=== PATIENT | female | born 1985 | race Caucasian/White ===

== ENCOUNTER 2017-06-21 11:17 | Emergency (ER) | payer OTHER ==
[2017-06-21 11:30] VITALS: BMI 31.9
--- NOTE | 2017-06-21 12:03 | PDOC ---
History of Present Illness - General History Source: Patient Exam Limitations: No Limitations <Madelyn Camacho - Last Filed: 06/21/17 16:06> - General History Source: Patient Exam Limitations: No Limitations - History of Present Illness Initial Comments: 06/21/17 12:04 The patient is a 32 year old female with no significant past medical history who presents to the ED complaining of approximately 1 day of suprapubic pain. Her pain is described as crampy, not radiating or migrating, with associated diaphoresis last night. The patient states her menstrual period was due approximately 1 week ago but she has yet to menstruate. The patient denies fever or chills. She denies any urinary complaints. She denies abnormal vaginal discharge. She denies nausea, vomiting, or diarrhea. Family history is noncontributory. Denies toxic habits. <Adalgisa Gallego - Last Filed: 06/21/17 16:17> - General Stated Complaint: ABD PAIN Past History - Reproductive History (#): 3 Para: 2 Therapeutic (s) & number: Yes - Immunization History Immunization Up to Date: No - Psycho/Social/Smoking Cessation Hx Anxiety: No Suicidal Ideation: No Smoking History: Never smoked Information on smoking cessation initiated: No Hx Alcohol Use: No Substance Use Type: None <Madelyn Camacho - Last Filed: 06/21/17 16:06> <Adalgisa Gallego - Last Filed: 06/21/17 16:17> - Past Medical History Allergies/Adverse Reactions: Allergies Allergy/AdvReac Type Severity Reaction Status Date / Time No Known Allergies Allergy Verified 12/17/14 19:41 Home Medications: Ambulatory Orders NK [No Known Home Medication] 12/17/14 Review of Systems - Review of Systems Able to Perform ROS?: Yes Comments:: 06/21/17 12:08 GENERAL/CONSTITUTIONAL: +Diaphoresis (resolved). No fever or chills. No weakness. HEAD, EYES, EARS, NOSE AND THROAT: No change in vision. No ear pain or discharge. No sore throat. CARDIOVASCULAR: No chest pain or shortness of breath. RESPIRATORY: No cough, wheezing, or hemoptysis. GASTROINTESTINAL: +Suprapubic cramping. No nausea, vomiting, diarrhea or constipation. GENITOURINARY: No dysuria, frequency, or change in urination. No abnormal vaginal bleeding MUSCULOSKELETAL: No joint or muscle swelling or pain. No neck or back pain. SKIN: No rash NEUROLOGIC: No headache, vertigo, loss of consciousness, or change in strength/ sensation. ENDOCRINE: No increased thirst. No abnormal weight change. HEMATOLOGIC/LYMPHATIC: No anemia, easy bleeding, or history of blood clots. ALLERGIC/IMMUNOLOGIC: No hives or skin allergy. <Adalgisa Gallego - Last Filed: 06/21/17 16:17> *Physical Exam - Vital Signs Last Vital Signs Temp Pulse Resp BP Pulse Ox 98 F 100 H 18 119/70 100 06/21/17 11:27 06/21/17 11:27 06/21/17 11:27 06/21/17 11:27 06/21/17 11:27 <Madelyn Camacho - Last Filed: 06/21/17 16:06> - Vital Signs Last Vital Signs Temp Pulse Resp BP Pulse Ox 98 F 100 H 18 119/70 100 06/21/17 11:27 06/21/17 11:27 06/21/17 11:27 06/21/17 11:27 06/21/17 11:27 - Physical Exam Comments: 06/21/17 12:12 GENERAL: Awake, alert, and fully oriented, in no acute distress HEAD: No signs of trauma EYES: PERRLA, EOMI, sclera anicteric, conjunctiva clear ENT: Auricles normal inspection, hearing grossly normal, nares patent, oropharynx clear without exudates. Moist mucosa NECK: Normal ROM, supple, no lymphadenopathy, JVD, or masses LUNGS: Breath sounds equal, clear to auscultation bilaterally. No wheezes, and no crackles HEART: Regular rate and rhythm, normal S1 and S2, no murmurs, rubs or gallops ABDOMEN: Soft, nontender, normoactive bowel sounds. No guarding, no rebound. No masses EXTREMITIES: Normal range of motion, no edema. No clubbing or cyanosis. No cords, erythema, or tenderness NEUROLOGICAL: Cranial nerves II through XII grossly intact. Normal speech, normal gait SKIN: Warm, Dry, normal turgor, no rashes or lesions noted. PELVIC: Normal external exam. Scant vaginal discharge, no vaginal bleeding. Cervical os is closed. +Mild R adnexal tenderness, no palpable masses. <Adalgisa Gallego - Last Filed: 06/21/17 16:17> ED Treatment Course - LABORATORY CBC & Chemistry Diagram: 06/21/17 13:11 06/21/17 13:11 <Madelyn Camacho - Last Filed: 06/21/17 16:06> - LABORATORY CBC & Chemistry Diagram: 06/21/17 13:11 06/21/17 13:11 - RADIOLOGY Radiograph Interpretation: 06/21/17 16:15 Transvaginal US with US <Adalgisa Gallego - Last Filed: 06/21/17 16:17> Medical Decision Making - Medical Decision Making 06/21/17 11:58 32 yo F here with crampy lower abd pain. started yesterday. no urinary complaints. no vaginal bleeding or dc. states her period is one week late. no f /c did have mild flank pain. no other mod factors. did not take anything for pain. awake alert lungs clear hear trr no mrg. abd soft nt nd. ext wwp no edema. plan : differential . uti plan pelvic exam ua ucg. reassess. <Madelyn Camacho - Last Filed: 06/21/17 16:06> - Medical Decision Making 06/21/17 12:53 Laboratory Tests 06/21/17 11:57 Urine Color Ltyellow Urine Appearance Clear Urine pH 7.0 Ur Specific [place] Pending Urine Protein Negative Urine Glucose (UA) Negative Urine Ketones Negative Urine Blood Negative Urine Nitrite Negative Urine Bilirubin Negative Urine Urobilinogen Negative Ur Leukocyte Esterase Negative Urine HCG, Qual Positive Labs reviewed <Adalgsia Gallego - Last Filed: 06/21/17 16:17> *DC/Admit/Observation/Transfer - Discharge Dispostion Admit: No <Madelyn Camacho - Last Filed: 06/21/17 16:06> - Attestations Scribe Attestion: 06/21/17 12:13 Documentation prepared by Adalgisa Gallego, acting as medical research tech for Madelyn Camacho MD. <Adalgisa Gallego - Last Filed: 06/21/17 16:17> Diagnosis at time of Disposition: - Referrals Referrals: Mari Bradley MD [Primary Care Provider] - Juan Dai MD [Staff Physician] - - Patient Instructions Printed Discharge Instructions: Medications and Additional Instructions: you should return to ED in 72 hour for repeat blood test of . your ultrasound does not show yet as it is too early. however we stil worry about ectopic or tubal . for severe worsening pain or bleeding return sooner. you should follow up with your primary java lead. call to schedule. if you do not have one you can follow up with dr. Dai. see referral information.
[2017-06-21 12:34] LABS: URINE APPEARANCE CLEAR; URINE BILIRUBIN NEGATIVE (NEGATIVE); URINE BLOOD NEGATIVE (NEGATIVE); URINE COLOR LTYELLOW; URINE GLUCOSE (UA) NEGATIVE (NEGATIVE); URINE KETONE NEGATIVE (NEGATIVE); URINE LEUK ESTERASE NEGATIVE (NEGATIVE); URINE NITRITE NEGATIVE (NEGATIVE); URINE PROTEIN NEGATIVE (NEGATIVE); URINE UROBILINOGEN NEGATIVE mg/dL (0.2-1.0)
[2017-06-21 13:52] LABS: BASOPHIL 0.9 % (0-2.0); EOSINOPHIL 1.6 % (0-4.5); MCH 29.3 pg (25.7-33.7); MCHC 33.2 g/dl (32.0-36.0); MEAN CELL VOLUME 88.3 fl (80-96); MEAN PLT VOLUME 8.3 fl (7.5-11.1); NEUTROPHILS 70.4 % (42.8-82.8); PLATELET COUNT 370 K/MM3 (134-434); RDW 12.9 % (11.6-15.6); WHITE BLOOD COUNT 10.4 K/mm3 (4.0-10.0)
[2017-06-21 14:25] LABS: ALBUMIN 3.7 g/dl (3.4-5.0); ANION GAP 6 (8-16); BILIRUBIN,TOTAL 0.3 mg/dL (0.2-1.0); CALCIUM 9.1 mg/dL (8.5-10.1); CO2 29 mmol/L (21-32); CREATININE 0.5 mg/dL (0.55-1.02); GLUCOSE,RANDOM 65 mg/dL (74-106); SGPT/ALT 19 U/L (12-78); TOT PROT 7.4 g/dl (6.4-8.2)
[2017-06-21 14:27] LABS: ALK PHOS 63 U/L (45-117)
[2017-06-21 14:28] LABS: SGOT/AST 19 U/L (15-37)
[2017-06-21 16:38] VITALS: BP 110/68; PULSE 86; TEMP 97.8
== END 2017-06-21 16:39 | disposition home or self-care (01) ==
LOC: JER 11:17
DX: O26.891 Other specified pregnancy related conditions, first trimester (principal); O34.11 Maternal care for benign tumor of corpus uteri, first trimester; D25.9 Leiomyoma of uterus, unspecified; Z3A.00 Weeks of gestation of pregnancy not specified
CPT/HCPCS: 36415; 76817-TC; 76856-TC; 80053; 81003; 84702; 84703; 85025; 86850; 86900; 86901; 99283-25

== ENCOUNTER 2017-06-24 10:59 | Emergency (ER) | payer OTHER ==
[2017-06-24 11:03] VITALS: BP 120/82; PULSE 90; TEMP 98.2; BMI 36.6
--- NOTE | 2017-06-24 11:43 | PDOC ---
History of Present Illness - General Chief Complaint: [facility] [place] Stated Complaint: LAB VARIANCE Time Seen by Provider: 06/24/17 11:26 History Source: Patient Exam Limitations: No Limitations - History of Present Illness Initial Comments: 06/24/17 11:37 Return to emergency department for repeat beta hCG per instructions. Was seen here 3 days ago with abdominal pain and cramping and found to be . Her beta hCG at that time was 395, but was too early to be detected by ultrasound. Patient since that time has not had any cramping, bleeding, or any problems. Was a planned Timing/Duration: unsure Past History - Travel Traveled outside of the country in the last 30 days: No Close contact w/someone who was outside of country & ill: No - Past Medical History Allergies/Adverse Reactions: Allergies Allergy/AdvReac Type Severity Reaction Status Date / Time No Known Allergies Allergy Verified 06/24/17 11:03 Home Medications: Ambulatory Orders NK [No Known Home Medication] 12/17/14 Other medical history: NONE - Reproductive History (#): 3 Para: 2 Therapeutic (s) & number: Yes - Immunization History Immunization Up to Date: No - Psycho/Social/Smoking Cessation Hx Anxiety: No Suicidal Ideation: No Smoking History: Never smoked Hx Alcohol Use: No Drug/Substance Use Hx: No Substance Use Type: None Review of Systems - Review of Systems Able to Perform ROS?: Yes Is the patient limited Hebrew proficient: Yes Constitutional: Yes: See HPI. No: Symptoms Reported, Loss of Appetite, Malaise HEENTM: Yes: See HPI. No: Symptoms Reported Respiratory: No: Symptoms reported Musculoskeletal: No: Symptoms Reported All Other Systems: Reviewed and Negative *Physical Exam - Vital Signs Last Vital Signs Temp Pulse Resp BP Pulse Ox 98.2 F 90 20 120/82 100 06/24/17 11:00 06/24/17 11:00 06/24/17 11:00 06/24/17 11:00 06/24/17 11:00 - Physical Exam General Appearance: Yes: Nourished, Appropriately Dressed. No: Apparent Distress HEENT: positive: KAYLENE, TMs Normal, Pharynx Normal Neck: positive: Supple. negative: Tender Respiratory/Chest: positive: Lungs Clear. negative: Chest Tender Extremity: positive: Normal Capillary Refill, Normal Inspection Integumentary: positive: Pale Neurologic: positive: cafeteria supervisor II-XII NML intact, Fully Oriented, Normal Response, Motor Strength 02/17 Medical Decision Making - Medical Decision Making 06/24/17 12:15 Beta hCG today 711 which is an appropriate increase for normal gestational . 06/24/17 12:16 *DC/Admit/Observation/Transfer Diagnosis at time of Disposition: Qualifiers: Weeks of gestation: less than 8 weeks Qualified Code(s): Z3A.01 - Less than 8 weeks gestation of - Discharge Dispostion Disposition: HOME Condition at time of disposition: Stable Admit: No - Patient Instructions Printed Discharge Instructions: DI for Abdominal Pain -- Early Additional Instructions: Continue healthy diet, lots of fluids Consider vitamins Follow-up with CHIEF INVESTMENT OFFICER for care Your beta hCG today is 711
== END 2017-06-24 12:48 | disposition home or self-care (01) ==
LOC: JERFT 10:59
DX: O26.891 Other specified pregnancy related conditions, first trimester (principal); Z32.01 Encounter for pregnancy test, result positive; Z3A.01 Less than 8 weeks gestation of pregnancy
CPT/HCPCS: 36415; 84702; 99281-25

== ENCOUNTER 2018-06-19 10:41 | Emergency (ER) | payer OTHER ==
[2018-06-19 10:47] VITALS: BP 126/71; PULSE 94; TEMP 98.9; BMI 39.5
--- NOTE | 2018-06-19 11:19 | PDOC ---
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 HEAD, EYES, EARS, NOSE AND THROAT: No: change in vision, ear pain, discharge, sore throat, throat swelling. CARDIOVASCULAR: No: chest pain, lightheadedness, palpitations, syncope RESPIRATORY: No: cough, shortness of breath, wheezing, hemoptysis, stridor. GASTROINTESTINAL: Yes: abdominal pain No: nausea, vomiting, diarrhea GENITOURINARY: No: dysuria, hematuria, frequency, urgency, flank pain. MUSCULOSKELETAL: No: back pain, neck pain, joint pain, muscle swelling or pain SKIN: No: lesions, pallor, rash or easy bruising. NEUROLOGIC: No: headache, vertigo, paresthesias, weakness ENDOCRINE: No: unexplained weight gain or loss HEMATOLOGIC/LYMPHATIC: No: anemia, easy bleeding, swelling nodes. PE: GENERAL: The patient is in no acute distress. HEAD: Normal with no signs of trauma. EYES: PERRLA, EOMI, sclera anicteric, conjunctiva clear. ENT: Ears normal, nares patent, oropharynx clear without exudates. Moist mucous membranes. NECK: Normal range of motion, supple without lymphadenopathy, JVD, or masses. LUNGS: Breath sounds equal, clear to auscultation bilaterally. No wheezes, and no crackles. HEART:Regular rate and rhythm, normal S1 and S2 without murmur, rub or gallop. ABDOMEN: Soft, LLQ tenderness, no guarding, no rebound EXTREMITIES: Normal range of motion, no edema. No clubbing or cyanosis. No erythema, or tenderness. NEUROLOGICAL: Cranial nerves II through XII grossly intact. Normal speech. No focal neurological deficits. MUSCULOSKELETAL: Back non-tender to palpation, no CVA tenderness SKIN: Warm, Dry, normal turgor, no rashes or lesions noted. 06/19/18 12:17 06/19/18 13:50 Past History - Past Medical History Allergies/Adverse Reactions: Allergies Allergy/AdvReac Type Severity Reaction Status Date / Time No Known Allergies Allergy Verified 06/19/18 10:47 Home Medications: Ambulatory Orders Pnv No.121/Iron/Folic Acid [ Multivitamin Tablet] 1 each PO DAILY #60 tablet 06/19/18 COPD: No DVT: No - Reproductive History (#): 3 Para: 2 Therapeutic (s) & number: Yes - Immunization History Immunization Up to Date: No - Suicide/Smoking/Psychosocial Hx Smoking History: Never smoked Have you smoked in the past 12 months: No Information on smoking cessation initiated: No Hx Alcohol Use: No Drug/Substance Use Hx: No Substance Use Type: None *Physical Exam - Vital Signs Last Vital Signs Temp Pulse Resp BP Pulse Ox 98.9 F 94 H 16 126/71 100 06/19/18 10:45 06/19/18 10:45 06/19/18 10:45 06/19/18 10:45 06/19/18 10:45 ED Treatment Course - LABORATORY CBC & Chemistry Diagram: 06/19/18 11:40 06/19/18 11:40 Medical Decision Making - Medical Decision Making 06/19/18 12:19 Laboratory Tests 06/21/17 06/19/18 06/19/18 13:00 11:40 11:40 WBC 11.3 H Hgb 13.0 Hct 38.3 Plt Count 350 Sodium 137 Potassium 4.2 Chloride 102 Carbon Dioxide 28 BUN 9 Creatinine 0.6 Random Glucose 96 Urine Ketones Urine Blood Ur Leukocyte Esterase Blood Type A POSITIVE 06/19/18 11:48 WBC Hgb Hct Plt Count Sodium Potassium Chloride Carbon Dioxide BUN Creatinine Random Glucose Urine Ketones Negative Urine Blood Negative Ur Leukocyte Esterase Negative Blood Type US pending 06/19/18 13:10 Laboratory Tests 06/19/18 06/19/18 11:48 12:21 Beta HCG, Quant 28922.5 Urine Blood Negative Urine Nitrite Negative Ur Leukocyte Esterase Negative US demonstrates IUP, (+) FHR Will discharge to home Pt given copies of all results Return precautions given clinical impression: abdominal pain, early , initial presentation *DC/Admit/Observation/Transfer Diagnosis at time of Disposition: Abdominal pain affecting - Discharge Dispostion Disposition: HOME Condition at time of disposition: Stable Decision to Admit order: No - Prescriptions Prescriptions: Pnv No.121/Iron/Folic Acid [ Multivitamin Tablet] 1 each PO DAILY #60 tablet - Referrals Referrals: Tamica Crespo MD [Certified Nurse Jewelry Drill Operator] - - Patient Instructions Printed Discharge Instructions: DI for Abdominal Pain-Adult, DI for - - Discomforts and Remedies Additional Instructions: Please return to the ER for any other concerns or complaints Please take tylenol for pain Please follow up with your steward/stewardess banquet within 1 week If you have heavy vaginal bleeding (saturating 2 pads/hour x 2 hours), please return to the ER - Post Discharge Activity Forms/Work/School Notes: Back to Work
[2018-06-19 11:54] LABS: BASO % 0.8 % (0-2.0); EOS % 1.6 % (0-4.5); HEMATOCRIT 38.3 % (32.4-45.2); LYMPH % 21.4 % (8-40); MCH 29.8 pg (25.7-33.7); MCHC 33.8 g/dl (32.0-36.0); MEAN CELL VOLUME 88.3 fl (80-96); MEAN PLT VOLUME 7.9 fl (7.5-11.1); MONO % 7.5 % (3.8-10.2); NEUT % 68.7 % (42.8-82.8); PLATELET COUNT 350 K/MM3 (134-434); RBC 4.34 M/mm3 (3.60-5.2); RDW 13.4 % (11.6-15.6); WHITE BLOOD COUNT 11.3 K/mm3 (4.0-10.0)
[2018-06-19 11:56] LABS: URINE APPEARANCE SLCLOUDY; URINE BILIRUBIN NEGATIVE (<2.0 mg/dL); URINE COLOR YELLOW; URINE GLUCOSE (UA) NEGATIVE (NEGATIVE); URINE KETONE NEGATIVE (NEGATIVE); URINE LEUK ESTERASE NEGATIVE (NEGATIVE); URINE NITRITE NEGATIVE (NEGATIVE); URINE PROTEIN NEGATIVE (NEGATIVE); URINE UROBILINOGEN NEGATIVE mg/dL (0.2-1.0)
[2018-06-19 12:10] LABS: ALBUMIN 3.2 g/dl (3.4-5.0); ALK PHOS 61 U/L (45-117); ANION GAP 7 MMOL/L (8-16); BILIRUBIN,TOTAL 0.3 mg/dL (0.2-1.0); BLOOD UREA NITROGEN 9 mg/dL (7-18); CALCIUM 8.8 mg/dL (8.5-10.1); CHLORIDE 102 mmol/L (98-107); CO2 28 mmol/L (21-32); CREATININE 0.6 mg/dL (0.55-1.02); GLUCOSE,RANDOM 96 mg/dL (74-106); SGPT/ALT 23 U/L (12-78); SODIUM 137 mmol/L (136-145); TOT PROT 7.3 g/dl (6.4-8.2)
[2018-06-19 12:14] LABS: POTASSIUM 4.2 mmol/L (3.5-5.1); SGOT/AST 16 U/L (15-37)
[2018-06-19] MEDS ORDERED: ACETAMINOPHEN 325 MG TABLET (FP) PO ONE (12:19)
[2018-06-19] MEDS ORDERED: ACETAMINOPHEN 325 MG TABLET (FP) ONE (12:25)
== END 2018-06-19 15:00 | disposition home or self-care (01) ==
LOC: JER 10:41
DX: O26.892 Other specified pregnancy related conditions, second trimester (principal); O34.12 Maternal care for benign tumor of corpus uteri, second trimester; Z3A.17 17 weeks gestation of pregnancy
CPT/HCPCS: 36415; 76817-TC; 80053; 81003; 84702; 85025; 86850; 86900; 86901; 87086; 99283-25

== ENCOUNTER 2018-07-09 11:38 | Emergency (ER) | payer OTHER ==
[2018-07-09 11:46] VITALS: BP 121/69; PULSE 103; TEMP 98.1; BMI 37.8
--- NOTE | 2018-07-09 12:35 | PDOC ---
History of Present Illness - General Chief Complaint: Cold Symptoms Stated Complaint: SORE THROAT, SOB Time Seen by Provider: 07/09/18 12:15 History Source: Patient Exam Limitations: No Limitations - History of Present Illness Initial Comments: 07/09/18 12:25 c/o right ear pain for 4 days with drainage , had fever chills last night. pt also with sore throat. pt is 12 weeks no abd pain or vaginal complaints Past History - Past Medical History Allergies/Adverse Reactions: Allergies Allergy/AdvReac Type Severity Reaction Status Date / Time No Known Allergies Allergy Verified 07/09/18 12:11 Home Medications: Ambulatory Orders Amoxicillin - [Amoxicillin 875mg Tablet -] 875 mg PO BID #14 tab 07/09/18 COPD: No DVT: No - Reproductive History (#): 3 Para: 2 Therapeutic (s) & number: Yes - Immunization History Immunization Up to Date: No - Suicide/Smoking/Psychosocial Hx Smoking History: Never smoked Have you smoked in the past 12 months: No Hx Alcohol Use: No Drug/Substance Use Hx: No Substance Use Type: None *Physical Exam - Vital Signs Last Vital Signs Temp Pulse Resp BP Pulse Ox 98.1 F 103 H 18 121/69 99 07/09/18 11:45 07/09/18 11:45 07/09/18 11:45 07/09/18 11:45 07/09/18 11:45 - Physical Exam General Appearance: Yes: Nourished, Appropriately Dressed HEENT: positive: EOMI, KAYLENE, TM Erythema (right ear with narrowing of canal yellow drainage TM bulging ) Neck: positive: Supple. negative: Lymphadenopathy (R), Lymphadenopathy (L) Respiratory/Chest: positive: Lungs Clear, Normal Breath Sounds. negative: Chest Tender, Crackles, Rales, Rhonchi, Stridor, Wheezing, Hyperresonant Gastrointestinal/Abdominal: positive: Normal Bowel Sounds, Soft Musculoskeletal: positive: Normal Inspection Extremity: positive: Normal Capillary Refill, Normal Inspection, Normal Range of Motion Integumentary: positive: Normal Color, Dry, Warm Neurologic: positive: ratoprinter II-XII NML intact, Fully Oriented, Alert, Normal Mood/ Affect, Normal Response, Motor Strength 5/5 Medical Decision Making - Medical Decision Making 07/09/18 12:25 cc: right ear pain with drainage exam consistent with acute otitis externa will treat with amoxicillin po and polymixin drops 07/09/18 13:28 pt concerned about FLU , will swab for flu *DC/Admit/Observation/Transfer Diagnosis at time of Disposition: Otitis externa - Discharge Dispostion Disposition: HOME Condition at time of disposition: Good - Prescriptions Prescriptions: Amoxicillin - [Amoxicillin 875mg Tablet -] 875 mg PO BID #14 tab - Referrals Referrals: Mikel Engel [Primary Care Provider] - Lawson Swanson MD [Staff Physician] - - Patient Instructions Printed Discharge Instructions: Ear Infections (Alternative Therapy) Additional Instructions: 1. Vinegar: Both apple cider vinegar and white vinegar are known to be good fighters for all kinds of fungus (3). Vinegar works on the fungus and removes it during the drainage process. Take one teaspoon each of vinegar and water, and mix well. Lie down on your side such that the infected ear is on the top. Now soak a cotton plug into the mixture and put it over the infected ear. Let it be there for about 15 minutes and then remove the liquid by turning your head in the opposite direction. Air-dry your ear completely. If you do it twice a day, you will get rid of the infection within 2 or 3 days. You can also put the mixture into the ear using a dropper. Squirm and then put some cotton in the ear. Let it remain for 15 minutes and then take away the cotton. Clean the ear using ear buds. take the Amoxicillin as directed for 7 days take tylenol as needed follow with the ENT doctor this week - Post Discharge Activity
== END 2018-07-09 13:42 | disposition home or self-care (01) ==
LOC: JERFT 11:38
DX: O99.89 Other specified diseases and conditions complicating pregnancy, childbirth and the puerperium (principal); H60.501 Unspecified acute noninfective otitis externa, right ear; Z3A.12 12 weeks gestation of pregnancy
CPT/HCPCS: 87804; 99281-25

== ENCOUNTER 2019-01-31 11:10 | Inpatient (IN) | payer OTHER ==
[2019-01-31 12:15] VITALS: BMI 43.7
[2019-01-31 13:50] LABS: BASO % 0.7 % (0-2.0); EOS % 1.1 % (0-4.5); HEMOGLOBIN 12.3 GM/dL (10.7-15.3); LYMPH % 24.4 % (8-40); MCH 27.8 pg (25.7-33.7); MCHC 33.3 g/dl (32.0-36.0); MEAN CELL VOLUME 83.4 fl (80-96); MEAN PLT VOLUME 8.6 fl (7.5-11.1); MONO % 6.9 % (3.8-10.2); NEUT % 66.9 % (42.8-82.8); PLATELET COUNT 327 K/MM3 (134-434); RBC 4.43 M/mm3 (3.60-5.2); RDW 16.5 % (11.6-15.6)
[2019-01-31 14:09] LABS: INR 0.92 (0.83-1.09); PROTHROMBIN TIME (PATIENT) 10.9 SEC (9.7-13.0)
[2019-01-31 14:11] LABS: ACTIVATED PTT 27.2 SECONDS (25.2-36.5)
[2019-01-31 14:19] LABS: ANION GAP 9 MMOL/L (8-16); BLOOD UREA NITROGEN 8 mg/dL (7-18); CALCIUM 9.1 mg/dL (8.5-10.1); CHLORIDE 104 mmol/L (98-107); CO2 25 mmol/L (21-32); CREATININE 0.7 mg/dL (0.55-1.3); GLUCOSE,RANDOM 117 mg/dL (74-106); POTASSIUM 4.1 mmol/L (3.5-5.1); SODIUM 137 mmol/L (136-145)
[2019-01-31] MEDS ORDERED: DINOPROSTONE 10 MG VAGINAL SUPPOSITORY VG ONE (17:34)
[2019-01-31] MEDS ORDERED: PROMETHAZINE HCL 25 MG/1 ML VIAL IVPUSH ONE (17:36)
[2019-01-31] MEDS ORDERED: BUTORPHANOL TARTRATE 1 MG/ML VIAL IVPUSH ONE (17:36)
[2019-01-31] MEDS ORDERED: DEXTROSE 5%-LACTATED RINGERS 1,000 ML IV SCH (17:45)
--- NOTE | 2019-01-31 18:39 | HP ---
Past Medical History - Primary Care Physician PCP:: Juan Dai - Admission Chief Complaint: 40 WEEKS, ADMITTED FOR CERVIDIL INDUCTION History of Present Illness: 33 YO F G5 P 2 0 2 40 WEEK admitted for cervidil induction, cx 2 cm 50 vx -3 fhr cat 1, no contraction, , cervidil risks and benfit discussed . all questions answered History Source: Patient Limitations to Obtaining History: No Limitations - Past Medical History ...: 5 ...Para: 2 ...Term: 2 ...: 0 ...Spon : 1 ...Induced : 1 ...Multiple Gestation: 0 ...LMP: 04/26/18 ... Weeks Gestation by Dates: 40 ...EDC by Dates: 01/31/19 ...EDC by Sono: 01/31/19 - Past Surgical History Hx Myomectomy: No Hx Transabdominal Cerclage: No - Smoking History Smoking history: Unknown if ever smoked Have you smoked in the past 12 months: No - Alcohol/Substance Use Hx Alcohol Use: No - Social History Usual Living Arrangement: Yes: With Spouse History of Recent Travel: No Home Medications - Allergies Allergies/Adverse Reactions: Allergies Allergy/AdvReac Type Severity Reaction Status Date / Time No Known Allergies Allergy Verified 01/31/19 12:24 - Home Medications Home Medications: Ambulatory Orders Vitamins (Sjr) - 1 tab PO DAILY 01/25/19 Review of Systems - Review of Systems Constitutional: reports: No Symptoms Eyes: reports: No Symptoms HENT: reports: No Symptoms Neck: reports: No Symptoms Cardiovascular: reports: No Symptoms Respiratory: reports: No Symptoms Gastrointestinal: reports: No Symptoms Genitourinary: reports: No Symptoms Breasts: reports: No Symptoms Reported Musculoskeletal: reports: No Symptoms Integumentary: reports: No Symptoms Neurological: reports: No Symptoms Endocrine: reports: No Symptoms Hematology/Lymphatic: reports: No Symptoms Psychiatric: reports: No Symptoms Physical Exam - Maternity Vital Signs: Vital Signs Temperature 98.5 F 01/31/19 18:00 Pulse Rate 96 H 01/31/19 18:00 Respiratory Rate 20 01/31/19 18:00 Blood Pressure 136/68 01/31/19 18:00 O2 Sat by Pulse Oximetry (%) Eyes: Yes: WNL HENT: Yes: WNL Neck: Yes: WNL Cardiovascular: Yes: WNL Breast(s): Yes: WNL - Abdominal Exam/OB Fundal Height: 40 Number of Fetuses: Single Presentation: Vertex Contractions: No Intensity: Unaware Monitor Mode: External Heart Rate Location: [facility] Category: I Accelerations: Uniform Decelerations: None - Vaginal Exam/OB Vaginal Bleediing: No Speculum Exam: No Dilatation (cm): 2 cm Effacement (%): 50 Amniotic Membrane Status: Intact Presentation: Vertex/Position Station: -3 - Physical Exam Musculoskeletal: Yes: WNL Extremities: Yes: WNL Edema: LLE: Trace, RLE: Trace Deep Tendon Reflex Grade: Normal +2 Psychiatric: Yes: Alert - Labs Lab Results: CBC, BMP 01/31/19 13:20 01/31/19 13:20 Problem List - Problems (1) Post term over 40 weeks Code(s): O48.0 - POST-TERM (2) Elective induction of labor planned Code(s): [id number] - (3) Obesity Code(s): E66.9 - OBESITY, UNSPECIFIED Qualifiers: Obesity type: due to excess calories Assessment/Plan admit. cervidil induction, fhm
--- NOTE | 2019-01-31 21:35 | PN ---
Progress Note (short form) - Note Progress Note: cx 3 cm 70 vx -3 mi, fhr cat 1, irregular contraction, will start amp. prophylaxsis Problem List - Problems (1) Post term over 40 weeks Code(s): O48.0 - POST-TERM (2) Elective induction of labor planned Code(s): [id number] - (3) Obesity Code(s): E66.9 - OBESITY, UNSPECIFIED Qualifiers: Obesity type: due to excess calories
[2019-01-31] MEDS ORDERED: AMPICILLIN SODIUM 2 GM VIAL ONE (21:38)
[2019-01-31] MEDS ORDERED: AMPICILLIN - 2 GM in SODIUM CHLORIDE 100 ML IVPB ONE (21:45)
[2019-02-01] MEDS: AMPICILLIN - 1 GM in SODIUM CHLORIDE 100 ML IVPB SCH ×4 (01:45→13:24)
[2019-02-01] MEDS ORDERED: AMPICILLIN SODIUM 1 GM VIAL ONE ×4 (01:57→13:10)
[2019-02-01] MEDS ORDERED: BUTORPHANOL TARTRATE 2 MG/ML VIAL ONE (02:19)
[2019-02-01] MEDS ORDERED: PROMETHAZINE HCL 25 MG/1 ML VIAL ONE (02:20)
[2019-02-01] MEDS ORDERED: OXYTOCIN 20 UNITS in 0.9% NS 20 UNIT/1,000 ML INFUS.BAG IV ONE ×2 (05:06→16:25)
[2019-02-01] MEDS: OXYTOCIN 30 UNITS in 0.9% NS 30 UNIT/500 ML INFUS.BAG IVPB SCH (05:30)
--- NOTE | 2019-02-01 07:19 | PN ---
Progress Note (short form) - Note Progress Note: 630 am cx 4 cm 80 vx -3 mi, fhr cat 1, irregular contraction Problem List - Problems (1) Post term over 40 weeks Code(s): O48.0 - POST-TERM (2) Elective induction of labor planned Code(s): [id number] - (3) Obesity Code(s): E66.9 - OBESITY, UNSPECIFIED Qualifiers: Obesity type: due to excess calories
--- NOTE | 2019-02-01 07:25 | PN ---
Progress Note (short form) - Note Progress Note: cx 4 cm , 70 vx -3 arom, light mec stain , fhr cat 1, irregular contraction Problem List - Problems (1) Post term over 40 weeks Code(s): O48.0 - POST-TERM (2) Elective induction of labor planned Code(s): [id number] - (3) Obesity Code(s): E66.9 - OBESITY, UNSPECIFIED Qualifiers: Obesity type: due to excess calories
[2019-02-01] MEDS: ELECTROLYTE-148 SOLN 1,000 ML IV SCH (08:30)
[2019-02-01] MEDS ORDERED: FENTANYL/BUPIVACAINE/NS/PF - PCEA - 50 ML DISP.SYRIN EP ONE ×2 (08:35→12:54)
[2019-02-01] MEDS: FENTANYL/BUPIVACAINE/NS/PF - PCEA - 50 ML DISP.SYRIN EP SCH (09:05)
--- NOTE | 2019-02-01 13:58 | PN ---
Progress Note (short form) - Note Progress Note: cx full 100 vx -1 fhr cat 2 with good BTN variability, accel, and variable decel with good recovery , anticipate vaginal delivery soon Problem List - Problems (1) Post term over 40 weeks Code(s): O48.0 - POST-TERM (2) Elective induction of labor planned Code(s): [id number] - (3) Obesity Code(s): E66.9 - OBESITY, UNSPECIFIED Qualifiers: Obesity type: due to excess calories
[2019-02-01] MEDS: OXYTOCIN 20 UNITS in 0.9% NS 20 UNIT/1,000 ML INFUS.BAG IV SCH (15:05)
[2019-02-01] MEDS ORDERED: WITCH HAZEL 50% (TUCKS) 40 PAD/JAR PAD TP PRN (15:13)
[2019-02-01] MEDS ORDERED: BENZOCAINE 20% 57 GM BOTTLE TP PRN (15:13)
[2019-02-01] MEDS ORDERED: BENZOCAINE 28 GM HEMORRHOIDAL OINTMENT TP PRN (15:13)
[2019-02-01] MEDS ORDERED: METHYLERGONOVINE MALEATE 0.2 MG/1 ML AMP IM PRN (15:13)
[2019-02-01] MEDS ORDERED: BISACODYL 10 MG SUPP.RECT RC PRN (15:13)
[2019-02-01] MEDS ORDERED: D5W-LR W/ 20 UNITS OXYTOCIN 20 UNIT/1,000 ML INFUS.BAG IV SCH (15:15)
[2019-02-01] MEDS ORDERED: ACETAMINOPHEN 325 MG TABLET (FP) ONE (15:22)
[2019-02-01] MEDS ORDERED: IBUPROFEN 600 MG TABLET (FP) PO ONE (15:22)
[2019-02-01] MEDS: IBUPROFEN 600 MG TABLET (FP) PO PRN (15:25)
[2019-02-01] MEDS: ACETAMINOPHEN 325 MG TABLET (FP) PO PRN (15:25)
[2019-02-01 15:48] LABS: ARTERIAL BLD GAS O2 SATURATION 4.4 % (95-98); ARTERIAL BLOOD GAS BASE EXCESS -6.6 meq/l (-2-2)
[2019-02-01 15:51] LABS: VENOUS PC02 54.4 mmHg (41-51); VENOUS PH 7.25 (7.31-7.41)
[2019-02-01 15:54] LABS: ARTERIAL BLOOD GAS PCO2 77.8 mmHg (35-45); ARTERIAL BLOOD GAS PO2 7.2 mmHg (80-105); ARTERIAL BLOOD GAS pH 7.15 (7.35-7.45)
[2019-02-01 15:55] LABS: VENOUS PO2 18.6 mmHg (30-40)
[2019-02-01] MEDS: FERROUS SO4 325 MG TABLET (FP) PO SCH (21:53)
[2019-02-02] MEDS: IBUPROFEN 600 MG TABLET (FP) PO PRN ×5 (00:39→20:36)
[2019-02-02] MEDS: ACETAMINOPHEN 325 MG TABLET (FP) PO PRN ×5 (00:41→20:37)
[2019-02-02 08:32] LABS: BASO % 0.3 % (0-2.0); EOS % 0.4 % (0-4.5); HEMOGLOBIN 10.7 GM/dL (10.7-15.3); MCH 27.6 pg (25.7-33.7); MCHC 32.5 g/dl (32.0-36.0); MEAN PLT VOLUME 8.7 fl (7.5-11.1); MONO % 6.1 % (3.8-10.2); NEUT % 79.2 % (42.8-82.8); PLATELET COUNT 294 K/MM3 (134-434); RBC 3.89 M/mm3 (3.60-5.2); RDW 17.2 % (11.6-15.6)
[2019-02-02] MEDS: FERROUS SO4 325 MG TABLET (FP) PO SCH ×2 (09:52→22:33)
[2019-02-02] MEDS: PRENATAL VITAMINS W/ FOLIC ACID TABLET (FP) PO SCH (09:52)
[2019-02-02] MEDS ORDERED: DIPHTH,PERTUSS(ACELL),TET 0.5 ML DISP.SYRIN IM ONE (10:00)
[2019-02-02] MEDS ORDERED: CEFAZOLIN 1 GM in DEXTROSE 5%-WATER - 50 ML IVPB ONE (10:13)
--- NOTE | 2019-02-02 10:15 | PN ---
Post Progress Note - Subjective Subjective: 33 yo Para 3 status post normal vaginal delivery, seen and evaluated. Doing well. Post Day: 1 Type of Delivery: Vital Signs: Vital Signs Temperature 98 F 02/02/19 06:00 Pulse Rate 92 H 02/02/19 06:00 Respiratory Rate 18 02/02/19 06:00 Blood Pressure 132/86 02/02/19 06:00 O2 Sat by Pulse Oximetry (%) 100 02/01/19 16:30 Breast Exam: Yes: Soft Uterus: Yes: Fundus Firm Abdomen/GI: Yes: Abdomen soft, Tolerating PO Lochia: Yes: Rubra Lochia, amount: Moderate Extremities: Yes: Calves non-tender Activity: Ambulating - Labs Labs: CBC WBC 16.0 K/mm3 (4.0-10.0) H 02/02/19 08:00 RBC 3.89 M/mm3 (3.60-5.2) 02/02/19 08:00 Hgb 10.7 GM/dL (10.7-15.3) 02/02/19 08:00 Hct 33.0 % (32.4-45.2) 02/02/19 08:00 MCV 85.0 fl (80-96) 02/02/19 08:00 MCH 27.6 pg (25.7-33.7) 02/02/19 08:00 MCHC 32.5 g/dl (32.0-36.0) 02/02/19 08:00 RDW 17.2 % (11.6-15.6) H 02/02/19 08:00 Plt Count 294 K/MM3 (134-434) 02/02/19 08:00 MPV 8.7 fl (7.5-11.1) 02/02/19 08:00 Absolute Neuts (auto) 12.7 K/mm3 (1.5-8.0) H 02/02/19 08:00 Neutrophils % 79.2 % (42.8-82.8) 02/02/19 08:00 Lymphocytes % 14.0 % (8-40) D 02/02/19 08:00 Monocytes % 6.1 % (3.8-10.2) 02/02/19 08:00 Eosinophils % 0.4 % (0-4.5) 02/02/19 08:00 Basophils % 0.3 % (0-2.0) 02/02/19 08:00 Nucleated RBC % 0 % (0-0) 02/02/19 08:00 Problem List - Problems (1) Status post normal vaginal delivery Code(s): [id number] - Assessment/Plan Status post vaginal delivery. Stable Continue routine care
[2019-02-02] MEDS ORDERED: CEFAZOLIN 1 GM/D5W 1 GM/50 ML BAG IVPB ONE (11:00)
[2019-02-02] MEDS: OXYTOCIN 30 UNITS in 0.9% NS 30 UNIT/500 ML INFUS.BAG IVPB SCH (19:42)
[2019-02-02] MEDS: OXYTOCIN 20 UNITS in 0.9% NS 20 UNIT/1,000 ML INFUS.BAG IV SCH (19:43)
[2019-02-02] MEDS: FENTANYL/BUPIVACAINE/NS/PF - PCEA - 50 ML DISP.SYRIN EP SCH (19:43)
[2019-02-02] MEDS: ELECTROLYTE-148 SOLN 1,000 ML IV SCH (19:43)
[2019-02-02] MEDS: AMPICILLIN - 1 GM in SODIUM CHLORIDE 100 ML IVPB SCH (19:46)
[2019-02-02] MEDS ORDERED: SENNOSIDES/DOCUSATE COMBO (SENNA PLUS) TABLET (UD) PO PRN (22:00)
[2019-02-03] MEDS: IBUPROFEN 600 MG TABLET (FP) PO PRN ×3 (01:12→09:57)
[2019-02-03] MEDS: ACETAMINOPHEN 325 MG TABLET (FP) PO PRN ×3 (01:13→09:58)
[2019-02-03 07:46] VITALS: BP 137/77; PULSE 97; TEMP 97.8
--- NOTE | 2019-02-03 07:59 | DS ---
Physical Exam-REFRIGERATOR REPAIRMAN Vital Signs: Vital Signs Temperature 97.8 F 02/03/19 07:45 Pulse Rate 97 H 02/03/19 07:45 Respiratory Rate 20 02/03/19 07:45 Blood Pressure 137/77 02/03/19 07:45 O2 Sat by Pulse Oximetry (%) 100 02/01/19 16:30 Constitutional: Yes: Well Nourished Eyes: Yes: Conjunctiva Clear HENT: Yes: Atraumatic Neck: Yes: Supple Cardiovascular: Yes: Regular Rate and Rhythm Respiratory: Yes: Regular Gastrointestinal: Yes: Normal Bowel Sounds ...Rectal Exam: Yes: WNL External Genitalia: Yes: Normal Vaginal Exam: Yes: Normal Cervix: Yes: Normal Uterus: Yes: Firm ....Post : Yes: Uterus firm, Moderate lochia serosa Breast(s): Yes: WNL Extremities: Yes: WNL Neurological: Yes: Alert, Oriented ...Motor Strength: WNL Psychiatric: Yes: Alert, Oriented Labs: CBC, BMP 02/02/19 08:00 01/31/19 13:20 Delivery - Delivery Type of Anesthesia: Local, Epidural Episiotomy/Laceration: Midline EBL (cc): 300 Delivery, Single - Stages of Labor Date 1st Stage Initiatied: 02/01/19 Time 1st Stage Initiated: 01:00 Date 2nd Stage Initiated: 02/01/19 Time 2nd Stage Initiated: 13:30 Date of Delivery: 02/01/19 Time of Delivery: 14:54 Time Placenta Delivered: 15:04 - 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 Present: Yes Name: Viki Godinez Infant Gender: Female Weight: 8 lb 14 oz Position: OP Total Hours ROM (Hrs/Mins): 7hrs 44min - 1 Minute Total Score: 7 5 Minutes Total Score: 9 - Feeding Plan Initial Plan: Elected not to breastfeed exclusively throughout hospitalization Discharge Summary Reason For Visit: INDUCTION OF LABOR Current Active Problems Elective induction of labor planned (Acute) Obesity (Acute) Post term over 40 weeks (Acute) Status post normal vaginal delivery (Acute) Procedures: Principal: Normal spontaneous vaginal delivery Hospital Course: Routine care Condition: Good - Instructions Diet, Activity, Other Instructions: return to clinic in 4-6 weeks for check. call [facility] for appointment. [phone] Disposition: HOME - Home Medications Comprehensive Discharge Medication List: Ambulatory Orders Vitamins (Sjr) - 1 tab PO DAILY 01/25/19
[2019-02-03] MEDS: PRENATAL VITAMINS W/ FOLIC ACID TABLET (FP) PO SCH (09:37)
[2019-02-03] MEDS: FERROUS SO4 325 MG TABLET (FP) PO SCH (09:37)
== END 2019-02-03 15:10 | disposition home or self-care (01) | DRG 560 ==
LOC: JLDR 11:10 → J3W 02-01 17:00
PROVIDERS: ADMIT Obstetrics & Gynecology; ATTEND Obstetrics & Gynecology
PROC: 10E0XZZ Delivery of Products of Conception, External Approach (ICD-10-PCS; principal; 2019-02-01)
PROC: 0W8NXZZ Division of Female Perineum, External Approach (ICD-10-PCS; 2019-02-01)
DX: O48.0 Post-term pregnancy (principal); O99.214 Obesity complicating childbirth; E66.9 Obesity, unspecified; Z3A.40 40 weeks gestation of pregnancy; Z37.0 Single live birth
CPT/HCPCS: 36415; 36600; 59409; 80048; 82803; 85025; 85610; 85730; 86593; 86850; 86900; 86901; 90715

== ENCOUNTER 2021-10-04 04:40 | Day surgery (SDC) | payer OTHER ==
[2021-10-04 07:56] VITALS: BMI 42.9
[2021-10-04 08:10] LABS: INR 1.03 (0.83-1.09); PROTHROMBIN TIME (PATIENT) 12.1 SEC (9.7-13.0)
[2021-10-04] MEDS ORDERED: MIDAZOLAM HCL 2 MG/2 ML SINGLE DOSE VIAL ONE (09:02)
[2021-10-04] MEDS ORDERED: PROPOFOL 20 ML ONE (09:02)
[2021-10-04] MEDS ORDERED: ONDANSETRON 4 MG/2 ML VIAL IVPUSH PRN (10:52)
[2021-10-04] MEDS ORDERED: oxyCODONE HCL 5 MG TABLET PO PRN (10:52)
[2021-10-04] MEDS ORDERED: LACTATED RINGERS SOLUTION 1,000 ML IV SCH (11:00)
[2021-10-04 11:16] VITALS: TEMP 97.7
[2021-10-04 12:36] VITALS: BP 139/74; PULSE 83
== END 2021-10-04 13:23 | disposition home or self-care (01) ==
LOC: JASU-SURG 04:40
PROVIDERS: ATTEND Obstetrics & Gynecology
PROC: 0UBC7ZX Excision of Cervix, Via Natural or Artificial Opening, Diagnostic (ICD-10-PCS; principal; 2021-10-04 09:00)
DX: D06.7 Carcinoma in situ of other parts of cervix (principal)
CPT/HCPCS: 36415; 84703; 85610; 86850; 86900; 86901; 94760

== ENCOUNTER 2022-05-06 05:00 | Day surgery (SDC) | payer OTHER ==
[2022-05-04 13:18] VITALS: BMI 34.8
[2022-05-06] MEDS ORDERED: BUPIVACAINE HCL/PF 0.25% (2.5MG/ML) 10 ML VIAL ONE (08:48)
[2022-05-06] MEDS ORDERED: DEXAMETHASONE SOD PHOSPHATE 4 MG/1 ML VIAL ONE (09:03)
[2022-05-06] MEDS ORDERED: MIDAZOLAM HCL 2 MG/2 ML SINGLE DOSE VIAL ONE (09:04)
[2022-05-06] MEDS ORDERED: PROPOFOL 20 ML ONE ×3 (09:04→09:09)
[2022-05-06] MEDS ORDERED: ROCURONIUM BROMIDE 50 MG/5 ML SYRINGE ONE (09:04)
[2022-05-06] MEDS ORDERED: DESFLURANE GAS 240 ML BOTTLE IH ONE (09:07)
[2022-05-06] MEDS ORDERED: BUPIVACAINE HCL/PF 0.25% (2.5MG/ML) 10 ML VIAL IJ ONE (09:40)
[2022-05-06] MEDS ORDERED: GLYCOPYRROLATE 0.2 MG/1 ML VIAL ONE (10:15)
[2022-05-06] MEDS ORDERED: NEOSTIGMINE METHYLSULFATE 0.5 MG/ML - 10 ML MDV ONE (10:15)
[2022-05-06] MEDS ORDERED: KETOROLAC TROMETHAMINE 30 MG/1 ML VIAL ONE (10:18)
[2022-05-06] MEDS ORDERED: ONDANSETRON 4 MG/2 ML VIAL IVPUSH PRN (10:46)
[2022-05-06] MEDS ORDERED: oxyCODONE HCL 5 MG TABLET PO PRN (10:46)
[2022-05-06] MEDS ORDERED: ACETAMINOPHEN 1000 MG/100 ML BAG IVPB ONE ×2 (10:47→10:51)
[2022-05-06] MEDS ORDERED: LACTATED RINGERS SOLUTION 1,000 ML IV SCH (11:00)
[2022-05-06] MEDS ORDERED: oxyCODONE HCL 5 MG TABLET ONE (12:07)
[2022-05-06 12:18] VITALS: RESP 20; TEMP 97.2
[2022-05-06 19:01] VITALS: BP 133/85; PULSE 72
== END 2022-05-06 13:27 | disposition home or self-care (01) ==
LOC: JASU-SURG 05:00
PROVIDERS: ATTEND Obstetrics & Gynecology
PROC: 0UT74ZZ Resection of Bilateral Fallopian Tubes, Percutaneous Endoscopic Approach (ICD-10-PCS; principal; 2022-05-06 09:00)
PROC: 0UBC7ZX Excision of Cervix, Via Natural or Artificial Opening, Diagnostic (ICD-10-PCS; 2022-05-06 09:00)
DX: Z30.2 Encounter for sterilization (principal); N87.0 Mild cervical dysplasia
CPT/HCPCS: 81025; 88302-TC; 88305-TC; 94760

== ENCOUNTER 2025-03-22 11:58 | Day surgery (SDC) | payer OTHER ==
[2025-03-22] MEDS: FERRIC CARBOXYMALTOSE 750 MG in SODIUM CHLORIDE 250 ML IVPB SCH (12:44)
[2025-03-22 13:06] VITALS: BP 138/82; TEMP 98.8
[2025-03-22 14:22] VITALS: PULSE 82; RESP 18
== END 2025-03-22 14:30 | disposition home or self-care (01) ==
LOC: FINFUSION 11:58 → FM/S 11:59 → FINFUSION 14:30
PROVIDERS: ATTEND Family Medicine
PROC: 3E033GC Introduction of Other Therapeutic Substance into Peripheral Vein, Percutaneous Approach (ICD-10-PCS; principal; 2025-03-22)
DX: D50.9 Iron deficiency anemia, unspecified (principal)
CPT/HCPCS: 81025; 96365; J1439